=== PATIENT | male | born 1970 | race African-American/Black ===

== ENCOUNTER 2020-12-16 03:04 | Emergency (ER) | payer OTHER ==
--- NOTE | 2020-12-16 03:26 | ED Physician Documentation ---
History of Present Illness - Stated complaint Stated Complaint: R SIDE FACE SWELLING - Chief complaint Chief Complaint: Wound - History obtained from History obtained from: Patient - History of Present Illness Timing: How many days ago (2) Pain level now: 6 Improved by: nothing Worsened by: fever - Additonal information Additional information: c/o 2 days of right facial pain and swelling. initially he noted punctate area of inflammation but the affected area and extent of pain and swelling have steadily increased denies h/o similar symptoms. denies injury. denies fever Review of Systems Constitutional: denies: Fever Skin: reports: Lesions PD PAST MEDICAL HISTORY - Past Medical History Past Medical History: No - Past Surgical History Past Surgical History: Yes HEENT: Other - Present Medications Home Medications: Ambulatory Orders Medication Instructions Recorded Confirmed Oxycodone HCl/Acetaminophen 1 - 2 each PO Q6H PRN #14 tablet 12/16/20 [Percocet 5-325 mg Tablet] Sulfamethox/Trimeth 800/160 1 each PO BID #19 tablet 12/16/20 [Bactrim Ds 800/160] - Allergies Allergies/Adverse Reactions: Allergies Allergy/AdvReac Type Severity Reaction Status Date / Time No Known Drug Allergies Allergy Verified 12/16/20 03:11 - Social History Does the pt smoke?: No Smoking Status: Never smoker Does the pt drink ETOH?: Yes ETOH Use: Liquor Does the pt have substance abuse?: No - Immunizations Immunizations are current?: Yes - POLST Patient has POLST: No PD ED PE NORMAL - Vitals Vital signs reviewed: Yes - General General: Alert and oriented X 3, No acute distress, Well developed/nourished PD ED PE EXPANDED - HEENT HEENT Visual: 1 - abscess, swelling, tenderness Results - Vitals Vitals: Vital Signs - 24 hr 12/16/20 12/16/20 04:43 05:36 Temperature 36.9 C Heart Rate 101 H 100 Respiratory 18 16 Rate Blood Pressure 156/92 H 134/84 H O2 Saturation 99 99 Oxygen O2 Source Room air - Labs Labs: Microbiology 12/16/20 04:05 Wound Culture - Preliminary Abscess Laboratory Tests 12/16/20 12/16/20 04:30 04:30 WBC 10.8 RBC 5.01 Hgb 13.5 L Hct 43.7 MCV 87.2 MCH 26.9 L MCHC 30.9 L RDW 14.9 Plt Count 342 MPV 9.3 Neut # (Auto) 7.6 H Lymph # (Auto) 2.0 [place] # (Auto) 1.0 Eos # (Auto) 0.1 Baso # (Auto) 0.1 Absolute Nucleated RBC 0.00 Nucleated RBC % 0.0 Sodium 138 Potassium 3.8 Chloride 99 L Carbon Dioxide 28 Anion Gap 11.0 BUN 10 Creatinine 0.9 Estimated GFR (MDRD) 108 Glucose 143 H Calcium 9.2 - Rads (name of study) CT maxillofacial with IV contrast Radiology: Prelim report reviewed, See rad report Procedures - Abscess I&D (location) Face right Preparation: Betadine, Alcohol, Lidocaine 2% (buffered) Incision: Incised with scalpel, Purulent drainage, Culture obtained Other: Antibiotic prescribed, Other (Small amount of pus expressed) PD MEDICAL DECISION MAKING - ED course Complexity details: reviewed results, re-evaluated patient, considered di fferential, d/w patient ED course: Facial swelling with firm palpable margins s/o abscess. I recommended facial CT with IV contrast but patient requests I+D without blood tests or CT. Unfortunately, despite multiple injections of buffered lidocaine, adequate anesthesia was not obtained. A small amount of pus was expressed from the stab incision site made with tip of 11 blade scalpel. patient subsequently c/o significant increase in pain. I offered both toradol and opiate analgesia although I explained that giving opiate medication would preclude driving (he would need to arrange for alternate transportation to driving self). He insists he must drive self home. I then contacted Dr. Alonso Rider and discussed case with him. He recommended push for maxillofacial CT which patient then agrees to. IV toradl given and patient reported adequate pain relief with this. After completion of CT, plan is to d/c and patient to follow up with Dr. Rider in his office this morning. Dr. Rider recommends bactrim DS BID x 10 days. patient given first dose in ED and rx for same transmitted to patients pharmacy along with rx for percocet. Departure - Departure Disposition: Home, Self Care Clinical Impression: Facial abscess Condition: Good Instructions: ED Staph Infec Abx Tx Only Follow-Up: ALONSO RIDER [Physician No Access] - Prescriptions: Sulfamethox/Trimeth 800/160 [Bactrim Ds 800/160] 1 each PO BID #19 tablet Oxycodone HCl/Acetaminophen [Percocet 5-325 mg Tablet] 1 - 2 each PO Q6H PRN #14 tablet PRN Reason: pain Comments: There was not nearly enough drainage of the abscess on my attempts; you will need a more advanced approach than would best be done by a specialist. I have discussed your case with Alonso Rider and he will evaluate you in his office later this morning when the office opens. He asks that you not eat or drink anything until after he has treated you, as you will likely need heavy sedation for the procedure that is best performed with an empty stomach. You have been given a dose of antibiotic orally in the emergency department, and provided with a few doses of strong pain medication to take once you are home. Please limit any oral intake to the smallest amount of liquid needed that will allow you to swallow the pain medication. If you take the pain medication provided, you cannot drive for a minimum of six hours due to it's sedative effect (whether you feel sedated or not), which would mean that if you take the pain medication you will need to arrange for a means of transportation to [facility]' office other than driving yourself there. You will need to have an alternative means of transportation home from [facility]' office arranged, as well. Prescriptions for bactrim (antibiotic) and oxycodone with acetaminophen (pain medication) have been electronically submitted to [facility] pharmacy in [place]. I am prescribing a short course of narcotic pain medication for you. These are potentially dangerous and addictive medications that should be used carefully. These medications may constipate you. Take an vtxc-nma-tyncgsb stool softener (docusate) twice daily with plenty of water while taking these medications. If you go 24 hours without a bowel movement, take tsya-[id number]-[id number] miralax, per package instructions. Do not drink or drive while taking these medications. If you received narcotic or sedating medications while in the emergency department, do not drive for 24 hours. Store this medication in a safe, secure place and out of reach of children. It is a violation of federal law to give or sell this medication to another person or to use in a manner other than prescribed. The ED will not refill narcotic prescriptions, including prescriptions lost or stolen. To dispose of unwanted medications: 1. [facility] at [address] in [place] has a medication drop box. They accept prescription medications (in p ill form) Sunday through Sunday 9:00 a.m. to 5:00 p.m. 2. The [facility] accepts prescription medications (in pill form only) for disposal year round. Call for more information. 3. Contact the [facility] for the next [employer] sponsored prescription drug collection event. , [phone], or [phone]; Discharge Date/Time: 12/16/20 05:53
[2020-12-16] MEDS ORDERED: BUFFERED LIDOCAINE 10 ML SYRINGE SUBQ STA (03:43)
[2020-12-16] MEDS ORDERED: KETOROLAC 30 MG/ML VIAL IVP STA (04:22)
[2020-12-16] MEDS ORDERED: SULFAMETH/TRIMETH DS 800/160 MG TABLET PO STA (04:35)
[2020-12-16] MEDS ORDERED: oxyCODONE/ACET 5/325 Prepack 4 PO STA (04:35)
[2020-12-16 04:51] LABS: BASOPHILS # (AUTO) 0.1 10^3/uL (0.0-0.1); BASOPHILS % (AUTO) 0.7 %; EOSINOPHILS # (AUTO) 0.1 10^3/uL (0.0-0.7); EOSINOPHILS % (AUTO) 1.2 %; HCT - HEMATOCRIT 43.7 % (42.0-52.0); HGB - HEMOGLOBIN 13.5 g/dL (14.0-18.0); LYMPHOCYTES % (AUTO) 18.8 %; MEAN CORPUSCULAR HEMOGLOBIN 26.9 pg (27.0-31.0); MEAN CORPUSCULAR HGB CONC 30.9 g/dL (32.0-36.0); MEAN CORPUSCULAR VOLUME 87.2 fL (80.0-94.0); MEAN PLATELET VOLUME 9.3 fL (7.4-11.4); MONOCYTES % (AUTO) 8.9 %; NEUTROPHILS # (AUTO) 7.6 10^3/uL (1.5-6.6); PLT - PLATELET COUNT 342 10^3/uL (130-450); RED BLOOD COUNT 5.01 10^6/uL (4.70-6.10); RED CELL DISTRIBUTION WIDTH 14.9 % (12.0-15.0); WHITE BLOOD COUNT 10.8 x10^3/uL (4.8-10.8)
[2020-12-16] MEDS ORDERED: IOVERSOL 320 100 ML VIAL IVP ONE ×2 (04:51→05:11)
[2020-12-16 05:00] LABS: CALCIUM 9.2 mg/dL (8.5-10.3); CREATININE 0.9 mg/dL (0.6-1.2); POTASSIUM 3.8 mmol/L (3.5-5.0)
[2020-12-16 05:40] VITALS: BP 134/84
--- NOTE | 2020-12-16 09:16 | CT Report ---
PROCEDURE: MAXILLOFACIAL W INDICATIONS: Right facial abscess CONTRAST: IV CONTRAST: Optiray 320 ml: 100 PO CONTRAST: *NO PO CONTRAST TECHNIQUE: After the administration of intravenous contrast, 3.0 mm axial sections acquired from the mid-neck to the frontal sinuses, with coronal reformatting. For radiation dose reduction, the following was use d: automated exposure control, adjustment of mA and/or kV according to patient size. COMPARISON: None. FINDINGS: The examination is compared mildly being hardening artifact from the patient's dental amalg ams. FACIAL BONES/SOFT TISSUES: Minimal cortical irregularity of the right mandible (series 3, image 36), which is nonspecific and may represent a nutrient foramen in the absence of trauma. No evidence of ag gressive osseous lesion. Infiltrative changes of the soft tissues overlying the right mandibular with thickening of the platysma and buccinator, compatible with cellulitis/phlegmon. No well-formed fluid collection is appreciated to suggest an abscess. GLOBES/ORBITS: Normal in size, contour, and position. The optic nerve sheath complex is within normal limits. The extraocular muscles, intraconal fat, and extraconal fat are within normal limits. SINUSES/OTHER: The visualized paranasal sinuses and tympanomastoid cavities are well aerated. IMPRESSION: 1.Right facial cellulitis as detailed above. No well-formed fluid collection to suggest an abscess. Concordant interpretation with preliminary report. Reviewed by: Rex Cates MD on 12/16/2020 9:15 AM [facility] Approved by: Rex Cates MD on 12/16/2020 9:15 AM [facility] Station ID: [id number]
== END 2020-12-16 05:53 | disposition home or self-care (01) ==
LOC: ED 03:04
DX: L02.01 Cutaneous abscess of face (principal)
CPT/HCPCS: 10060; 36415; 70487; 80048; 85025; 87070; 87181; 87205; 96374; 99283; 99284; A9270; Q9967